=== PATIENT | female | born 1975 | race Caucasian/White ===

== ENCOUNTER 2024-11-25 16:38 | Inpatient (IN) | payer OTHER ==
[2024-11-25] MEDS ORDERED: LORazepam 2 MG/ML SDV VIAL ONE (17:15)
[2024-11-25] MEDS: LORazepam 2 MG/ML SDV VIAL IM ONE (17:21)
[2024-11-25] MEDS ORDERED: diazePAM CARPU-JECT 10 MG/2 ML DISP.SYRIN ONE ×2 (17:56→19:16)
[2024-11-25] MEDS: diazePAM CARPU-JECT 10 MG/2 ML DISP.SYRIN IM ONE (18:17)
[2024-11-25] MEDS ORDERED: THIAMINE HCL 200 MG/2 ML VIAL ONE ×2 (19:16→22:10)
[2024-11-25] MEDS ORDERED: MAGNESIUM SULF 50% (8.12 MEQ/2 ML-1 GM VIAL) ONE (19:16)
[2024-11-25] MEDS: diazePAM CARPU-JECT 10 MG/2 ML DISP.SYRIN IVPUSH ONE (19:24)
[2024-11-25] MEDS: LACTATED RINGERS SOLUTION 1000 ML INFUS.BAG IV ONE (19:24)
[2024-11-25 19:59] LABS: ABSOLUTE IMMATURE GRANULOCYTES 0.03 x10^3/uL (0.0-0.031); BASOPHILS # 0.05 x10^3/uL (0.01-0.08); EOSINOPHIL % 1.7 % (0.7-5.8); EOSINOPHILS # 0.12 x10^3/uL (0.04-0.36); MCHC 34.0 g/dl (32.2-35.5); MEAN CELL VOLUME 93.5 fl (79.4-94.8); MEAN PLT VOLUME 10.8 fl (9.4-12.3); MONOCYTE # 0.62 x10^3/uL (0.24-0.86); MONOCYTE % 8.6 % (4.7-12.5); RDW 13.6 % (12.2-17.1)
[2024-11-25 19:59] LABS: TOT PROT 7.0 g/dl (6.4-8.2)
[2024-11-25 20:00] LABS: CO2 26.0 mmol/L (21-32)
[2024-11-25 20:02] LABS: ALK PHOS 109.0 U/L (40-150)
[2024-11-25 20:04] LABS: SGOT/AST 77.0 U/L (5-34); SGPT/ALT 95.0 U/L (0-55)
[2024-11-25] MEDS: MAGNESIUM 1GM/D5W 100ML - 100 ML IVPB IVPB ONE (20:04)
[2024-11-25 20:05] LABS: CREATININE 0.56 mg/dL (0.55-1.3)
[2024-11-25 20:09] LABS: GLUCOSE,RANDOM 108.0 mg/dL (74-106)
[2024-11-25] MEDS: THIAMINE HCL 200 MG/2 ML VIAL IVPB ONE ×3 (21:23→22:13)
[2024-11-25 21:29] LABS: HIV INTERPRETATION NEGATIVE (NEGATIVE)
[2024-11-25 21:31] LABS: HCV DIAGNOSTIC IN-HOUSE W/RFLX NON-REACTIVE (NONREACTIVE)
[2024-11-26] MEDS: LACTATED RINGERS SOLUTION 1,000 ML/1,000 ML INFUS.BAG IV SCH ×2 (01:52→18:32)
[2024-11-26] MEDS ORDERED: LORazepam 2 MG/ML SDV VIAL IVPUSH PRN (09:16)
[2024-11-26] MEDS: LORazepam 4 MG/1 ML VIAL IVPUSH PRN (09:19)
[2024-11-26] MEDS: ENOXAPARIN NA (PORCINE) 40 MG/0.4 ML DISP.SYRIN SQ SCH (10:12)
[2024-11-26] MEDS: THIAMINE 100 MG TABLET PO SCH (10:12)
[2024-11-26] MEDS: FOLIC ACID 1 MG TABLET (FP) PO SCH (10:12)
[2024-11-26] MEDS: LORazepam 2 MG/ML SDV VIAL IVPUSH ONE (11:42)
[2024-11-26] MEDS ORDERED: DEXTROSE 50%-WATER - 25 GM/50 ML VIAL IVPUSH PRN (14:08)
[2024-11-26] MEDS: diazePAM CARPU-JECT 10 MG/2 ML DISP.SYRIN IVPB ONE (14:44)
[2024-11-26 16:27] LABS: ABSOLUTE IMMATURE GRANULOCYTES 0.01 x10^3/uL (0.0-0.031); BASOPHILS # 0.03 x10^3/uL (0.01-0.08); EOSINOPHIL % 1.5 % (0.7-5.8); EOSINOPHILS # 0.12 x10^3/uL (0.04-0.36); MCHC 32.8 g/dl (32.2-35.5); MEAN CELL VOLUME 94.3 fl (79.4-94.8); MEAN PLT VOLUME 10.9 fl (9.4-12.3); MONOCYTE # 0.70 x10^3/uL (0.24-0.86); MONOCYTE % 8.7 % (4.7-12.5); RDW 13.8 % (12.2-17.1)
[2024-11-26] MEDS ORDERED: diazePAM CARPU-JECT 10 MG/2 ML DISP.SYRIN IVPUSH PRN (16:32)
[2024-11-26 17:06] LABS: GLUCOSE,RANDOM 97.0 mg/dL (74-106); TOT PROT 6.5 g/dl (6.4-8.2)
[2024-11-26 17:07] LABS: CO2 25.0 mmol/L (21-32)
[2024-11-26 17:09] LABS: ALK PHOS 103.0 U/L (40-150)
[2024-11-26 17:11] LABS: SGOT/AST 61.0 U/L (5-34); SGPT/ALT 68.0 U/L (0-55)
[2024-11-26 17:12] LABS: CREATININE 0.5 mg/dL (0.55-1.3)
[2024-11-26] MEDS: diazePAM CARPU-JECT 10 MG/2 ML DISP.SYRIN IM ONE (17:34)
[2024-11-26] MEDS: NAPH,MB-DB/K PH,MBDB POWDER PACKET PO ONE (18:29)
[2024-11-26] MEDS: diazePAM CARPU-JECT 10 MG/2 ML DISP.SYRIN IVPUSH ONE (19:20)
[2024-11-26] MEDS ORDERED: DEXMEDETOMIDINE PREMIX 400 MCG/100 ML BAG IVPB ONE (19:49)
[2024-11-26] MEDS: DEXMEDETOMIDINE PREMIX 400 MCG/100 ML BAG IVPB SCH (20:00)
[2024-11-26] MEDS: MUPIROCIN 2% TOPICAL OINTMENT FOR DECOLONIZATION NS SCH (22:07)
[2024-11-26] MEDS: CHLORHEXIDINE GLUCONATE 4% CLEANSER FOR DECOLONIZATION TP SCH (22:07)
[2024-11-27] MEDS ORDERED: LACTATED RINGERS SOLUTION 1,000 ML/1,000 ML INFUS.BAG IV SCH (08:00)
[2024-11-27 11:00] LABS: ABSOLUTE IMMATURE GRANULOCYTES 0.03 x10^3/uL (0.0-0.031); BASOPHILS # 0.04 x10^3/uL (0.01-0.08); EOSINOPHIL % 3.7 % (0.7-5.8); EOSINOPHILS # 0.26 x10^3/uL (0.04-0.36); MCHC 33.9 g/dl (32.2-35.5); MEAN CELL VOLUME 93.1 fl (79.4-94.8); MEAN PLT VOLUME 11.0 fl (9.4-12.3); MONOCYTE # 0.54 x10^3/uL (0.24-0.86); MONOCYTE % 7.7 % (4.7-12.5); RDW 13.3 % (12.2-17.1)
[2024-11-27 11:10] LABS: INR 0.98 (0.83-1.09); PROTHROMBIN TIME (PATIENT) 10.8 SEC (9.7-13.0)
[2024-11-27 11:13] LABS: ACTIVATED PTT 28.4 SECONDS (25.2-36.5); GLUCOSE,RANDOM 131.0 mg/dL (74-106)
[2024-11-27 11:14] LABS: TOT PROT 6.0 g/dl (6.4-8.2)
[2024-11-27 11:15] LABS: CO2 28.0 mmol/L (21-32)
[2024-11-27 11:17] LABS: ALK PHOS 94.0 U/L (40-150)
[2024-11-27 11:19] LABS: SGOT/AST 47.0 U/L (5-34); SGPT/ALT 61.0 U/L (0-55)
[2024-11-27 11:20] LABS: CREATININE 0.61 mg/dL (0.55-1.3)
[2024-11-27] MEDS: FOLIC ACID 1 MG TABLET (FP) PO SCH (11:35)
[2024-11-27] MEDS: THIAMINE 100 MG TABLET PO SCH (11:35)
[2024-11-27] MEDS: ENOXAPARIN NA (PORCINE) 40 MG/0.4 ML DISP.SYRIN SQ SCH (11:36)
[2024-11-27] MEDS: diazePAM CARPU-JECT 10 MG/2 ML DISP.SYRIN IVPUSH PRN (14:22)
[2024-11-27 17:59] VITALS: BMI 31.5
[2024-11-28] MEDS: DEXMEDETOMIDINE PREMIX 400 MCG/100 ML BAG IVPB SCH (02:45)
[2024-11-28 09:16] LABS: ABSOLUTE IMMATURE GRANULOCYTES 0.02 x10^3/uL (0.0-0.031); BASOPHILS # 0.04 x10^3/uL (0.01-0.08); EOSINOPHIL % 2.9 % (0.7-5.8); EOSINOPHILS # 0.23 x10^3/uL (0.04-0.36); MCHC 33.8 g/dl (32.2-35.5); MEAN CELL VOLUME 92.6 fl (79.4-94.8); MEAN PLT VOLUME 11.6 fl (9.4-12.3); MONOCYTE # 0.48 x10^3/uL (0.24-0.86); MONOCYTE % 6.1 % (4.7-12.5); RDW 12.9 % (12.2-17.1)
[2024-11-28 09:38] LABS: GLUCOSE,RANDOM 109.0 mg/dL (74-106)
[2024-11-28 09:39] LABS: TOT PROT 6.4 g/dl (6.4-8.2)
[2024-11-28 09:40] LABS: CO2 26.0 mmol/L (21-32)
[2024-11-28 09:41] LABS: ALK PHOS 99.0 U/L (40-150)
[2024-11-28 09:44] LABS: CREATININE 0.54 mg/dL (0.55-1.3); SGOT/AST 43.0 U/L (5-34); SGPT/ALT 58.0 U/L (0-55)
[2024-11-28] MEDS: HALOPERIDOL LACTATE 5 MG/ML IM ONE (18:50)
[2024-11-29] MEDS: HALOPERIDOL LACTATE 5 MG/ML IM PRN (04:13)
[2024-11-29 08:45] LABS: ABSOLUTE IMMATURE GRANULOCYTES 0.02 x10^3/uL (0.0-0.031); BASOPHILS # 0.04 x10^3/uL (0.01-0.08); EOSINOPHIL % 3.2 % (0.7-5.8); EOSINOPHILS # 0.22 x10^3/uL (0.04-0.36); MCHC 33.9 g/dl (32.2-35.5); MEAN CELL VOLUME 92.7 fl (79.4-94.8); MEAN PLT VOLUME 10.8 fl (9.4-12.3); MONOCYTE # 0.50 x10^3/uL (0.24-0.86); MONOCYTE % 7.2 % (4.7-12.5); RDW 12.8 % (12.2-17.1)
[2024-11-29] MEDS: MAGNESIUM OXIDE 400 MG TABLET (FP) PO SCH ×2 (09:29→22:09)
[2024-11-29 09:49] LABS: GLUCOSE,RANDOM 90.0 mg/dL (74-106)
[2024-11-29 09:50] LABS: TOT PROT 5.8 g/dl (6.4-8.2)
[2024-11-29 09:51] LABS: CO2 22.0 mmol/L (21-32)
[2024-11-29 09:52] LABS: ALK PHOS 90.0 U/L (40-150)
[2024-11-29 09:55] LABS: CREATININE 0.56 mg/dL (0.55-1.3); SGOT/AST 42.0 U/L (5-34); SGPT/ALT 44.0 U/L (0-55)
[2024-11-29] MEDS: MAGNESIUM SULFATE IN WATER 2 GM/50 ML IVPB IVPB ONE (11:12)
[2024-11-29] MEDS ORDERED: HALOPERIDOL LACTATE 5 MG/ML IM PRN (14:29)
[2024-11-29] MEDS: FOLIC ACID 1 MG TABLET (FP) PO SCH (15:22)
[2024-11-29] MEDS: PATIENT'S OWN MEDICATION (NON-FORMULARY) (Dextroamphetamine/Amphetamine [Adderall Xr 30 Mg PO SCH (15:22)
[2024-11-29] MEDS: diazePAM CARPU-JECT 10 MG/2 ML DISP.SYRIN IVPUSH ONE (15:22)
[2024-11-29] MEDS: THIAMINE 100 MG TABLET PO SCH (15:23)
[2024-11-29] MEDS: THIAMINE HCL 200 MG/2 ML VIAL IVPB SCH (15:23)
[2024-11-29] MEDS: diazePAM CARPU-JECT 10 MG/2 ML DISP.SYRIN IVPB ONE (15:24)
[2024-11-29] MEDS: diazePAM CARPU-JECT 10 MG/2 ML DISP.SYRIN IVPUSH SCH ×2 (15:25→15:26)
[2024-11-29] MEDS ORDERED: MUPIROCIN 2% TOPICAL OINTMENT FOR DECOLONIZATION NS SCH (22:00)
[2024-11-29] MEDS ORDERED: CHLORHEXIDINE GLUCONATE 4% CLEANSER FOR DECOLONIZATION TP SCH (22:00)
[2024-11-30 00:41] VITALS: RESP 18
[2024-11-30] MEDS ORDERED: LORazepam 2 MG/ML SDV VIAL ONE (02:12)
[2024-11-30] MEDS: LORazepam 2 MG/ML SDV VIAL IVPUSH ONE (02:17)
[2024-11-30 07:29] LABS: MCHC 33.2 g/dl (32.2-35.5); MEAN CELL VOLUME 94.1 fl (79.4-94.8); MEAN PLT VOLUME 12.0 fl (9.4-12.3); RDW 13.3 % (12.2-17.1)
[2024-11-30 07:44] LABS: GLUCOSE,RANDOM 104.0 mg/dL (74-106); TOT PROT 7.9 g/dl (6.4-8.2)
[2024-11-30 07:46] LABS: CO2 21.0 mmol/L (21-32)
[2024-11-30 07:47] LABS: ALK PHOS 91.0 U/L (40-150)
[2024-11-30 07:50] LABS: CREATININE 0.57 mg/dL (0.55-1.3); SGOT/AST 64.0 U/L (5-34); SGPT/ALT 46.0 U/L (0-55)
[2024-11-30] MEDS: FOLIC ACID 1 MG TABLET (FP) PO SCH (09:34)
[2024-11-30] MEDS: ENOXAPARIN NA (PORCINE) 40 MG/0.4 ML DISP.SYRIN SQ SCH (09:35)
[2024-11-30] MEDS: THIAMINE 100 MG TABLET PO SCH (09:35)
[2024-11-30] MEDS ORDERED: LORazepam 2 MG/ML SDV VIAL IVPUSH PRN (09:42)
[2024-11-30 10:26] LABS: GLUCOSE,RANDOM 100.0 mg/dL (74-106)
[2024-11-30 10:28] LABS: CO2 22.0 mmol/L (21-32)
[2024-11-30 10:32] LABS: CREATININE 0.6 mg/dL (0.55-1.3)
[2024-11-30] MEDS: DEXTROAMPHETAMINE/AMPHETAMINE 10 MG CAP.ER.24H PO SCH (12:22)
[2024-11-30] MEDS: PRAZOSIN HCL 1 MG CAPSULE PO SCH (21:05)
[2024-11-30] MEDS: levETIRAcetam 500 MG TABLET (FP) PO SCH (21:06)
[2024-12-01] MEDS: DEXTROAMPHETAMINE/AMPHETAMINE 10 MG CAP.ER.24H PO SCH (08:29)
[2024-12-01 08:33] LABS: ABSOLUTE IMMATURE GRANULOCYTES 0.04 x10^3/uL (0.0-0.031); BASOPHILS # 0.04 x10^3/uL (0.01-0.08); EOSINOPHIL % 3.2 % (0.7-5.8); EOSINOPHILS # 0.28 x10^3/uL (0.04-0.36); MCHC 33.3 g/dl (32.2-35.5); MEAN CELL VOLUME 94.5 fl (79.4-94.8); MEAN PLT VOLUME 11.3 fl (9.4-12.3); MONOCYTE # 0.60 x10^3/uL (0.24-0.86); MONOCYTE % 6.9 % (4.7-12.5); RDW 13.6 % (12.2-17.1)
[2024-12-01 09:11] LABS: GLUCOSE,RANDOM 102.0 mg/dL (74-106)
[2024-12-01 09:12] LABS: TOT PROT 7.1 g/dl (6.4-8.2)
[2024-12-01 09:13] LABS: CO2 14.0 mmol/L (21-32)
[2024-12-01 09:15] LABS: ALK PHOS 89.0 U/L (40-150)
[2024-12-01 09:17] LABS: SGOT/AST 36.0 U/L (5-34); SGPT/ALT 44.0 U/L (0-55)
[2024-12-01 09:18] LABS: CREATININE 0.68 mg/dL (0.55-1.3)
[2024-12-01 10:27] VITALS: BP 132/89; PULSE 98; TEMP 97.5
[2024-12-02] MEDS ORDERED: DEXTROAMPHETAMINE/AMPHETAMINE 10 MG CAP.ER.24H PO SCH (08:00)
== END 2024-12-01 11:16 | disposition other institution (70) | DRG 897 ==
LOC: JER 16:38 → JERBED 22:40 → J7W 11-26 04:43 → OBSVTOIN 11-26 07:59 → JICU 11-26 15:37 → J8W 11-29 13:48
PROVIDERS: ADMIT Internal Medicine; ATTEND Nurse Practitioner Acute Care
PROC: HZ2ZZZZ Detoxification Services for Substance Abuse Treatment (ICD-10-PCS; principal; 2024-11-26)
DX: F10.231 Alcohol dependence with withdrawal delirium (principal); S06.9XAA Unspecified intracranial injury with loss of consciousness status unknown, initial encounter; G43.909 Migraine, unspecified, not intractable, without status migrainosus; G50.0 Trigeminal neuralgia; G47.00 Insomnia, unspecified; F90.9 Attention-deficit hyperactivity disorder, unspecified type; R56.9 Unspecified convulsions; R44.1 Visual hallucinations; M43.6 Torticollis; G20.C Parkinsonism, unspecified; X58.XXXA Exposure to other specified factors, initial encounter; Y93.89 Activity, other specified; Y92.9 Unspecified place or not applicable; Y99.9 Unspecified external cause status
CPT/HCPCS: 36415; 70450-TC; 80048; 80053; 80307; 82962; 83735; 84100; 85025; 85027; 85610; 85730; 86803; 87389; 87637-QW; 93005; 93010; 99285-25; G0378

== ENCOUNTER 2024-12-01 12:15 | Inpatient (IN) | payer OTHER ==
[2024-12-01 12:42] VITALS: BMI 28.8
[2024-12-01] MEDS ORDERED: MAGNESIUM HYDROX 2400MG/30ML ORAL SUSPENSION 30 ML CUP PO PRN (14:06)
[2024-12-01] MEDS ORDERED: NICOTINE POLACRILEX 2 MG GUM BUC PRN (14:06)
[2024-12-01] MEDS ORDERED: ACETAMINOPHEN 325 MG TABLET (FP) PO PRN (14:06)
[2024-12-01] MEDS ORDERED: IBUPROFEN 600 MG TABLET (FP) PO PRN (14:06)
[2024-12-01] MEDS ORDERED: POLYETHYLENE GLYCOL (HEALTHYLAX) 3350 17 GM PACKET PO PRN (14:06)
[2024-12-01] MEDS ORDERED: NALOXONE (NARCAN) HCL 4 MG/0.1 ML SPRAY NS PRN (14:06)
[2024-12-01] MEDS ORDERED: LOPERAMIDE HCL 2 MG CAPSULE PO PRN (14:06)
[2024-12-01] MEDS ORDERED: BENZOCAINE/MENTHOL (CHLORASEPTIC ) LOZENGE MM PRN (14:06)
[2024-12-01] MEDS ORDERED: MAG HYDROX/AL HYDROX/SIMETH 30 ML UNIT-DOSE CUP PO PRN (14:06)
[2024-12-01] MEDS ORDERED: BENZONATATE 200 MG CAPSULE PO PRN (14:06)
[2024-12-01] MEDS ORDERED: IBUPROFEN 400 MG TABLET (FP) PO PRN (14:06)
[2024-12-01] MEDS ORDERED: guaiFENesin 600 MG TABLET.ER (FP) PO PRN (14:06)
[2024-12-01] MEDS: hydrOXYzine PAMOATE 25 MG CAPSULE (FP) PO PRN (16:54)
[2024-12-01] MEDS: TUBERCULIN PPD 5 TU/0.1ML SYRINGE (IN PATIENT USE ONLY) ID ONE (17:13)
[2024-12-01] MEDS: ACAMPROSATE CALCIUM 333 MG TABLET.DR PO SCH (21:10)
[2024-12-01] MEDS: PRAZOSIN HCL 1 MG CAPSULE PO SCH (21:10)
[2024-12-01] MEDS: MELATONIN 5 MG TABLETS PO SCH (21:11)
[2024-12-01] MEDS: THIAMINE 100 MG TABLET PO SCH (21:11)
[2024-12-01] MEDS ORDERED: levETIRAcetam 500 MG TABLET (FP) PO SCH (22:00)
[2024-12-02] MEDS: PRENATAL VITAMINS W/ FOLIC ACID TABLET (FP) PO SCH (10:24)
[2024-12-02] MEDS: NICOTINE 14 MG/24 HOURS TOPICAL PATCH TD SCH (10:24)
[2024-12-02 18:23] VITALS: BP 147/102; PULSE 73; RESP 18; TEMP 97.7
[2024-12-03] MEDS ORDERED: DEXTROAMPHETAMINE/AMPHETAMINE 20 MG CAP.ER.24H PO SCH (07:00)
== END 2024-12-02 19:04 | disposition left against medical advice (07) | DRG 894 ==
LOC: YASAS 12:15 → Y3NR 16:03
PROVIDERS: ADMIT Family Medicine; ATTEND Psychiatry & Neurology Pain Medicine
PROC: HZ42ZZZ Group Counseling for Substance Abuse Treatment, Cognitive-Behavioral (ICD-10-PCS; principal; 2024-12-01)
DX: F10.20 Alcohol dependence, uncomplicated (principal); Z59.00 Homelessness unspecified; F17.210 Nicotine dependence, cigarettes, uncomplicated; F43.10 Post-traumatic stress disorder, unspecified; F41.9 Anxiety disorder, unspecified; Z91.410 Personal history of adult physical and sexual abuse; Z86.59 Personal history of other mental and behavioral disorders; Z87.820 Personal history of traumatic brain injury